=== PATIENT | male | born 1970 | race Caucasian/White ===

== ENCOUNTER → 2020-05-04 | Outpatient (CLI) | payer BC | LOC: RAD 08:00 | DX: K26.9 Duodenal ulcer, unspecified as acute or chronic, without hemorrhage or perforation (principal); K21.00 Gastro-esophageal reflux disease with esophagitis, without bleeding | CPT/HCPCS: 74240 ==

== ENCOUNTER → 2020-07-21 | Outpatient (CLI) | payer BC ==
[2020-07-22 09:15] LABS: CREATININE, URINE 54.9 mg/dL (Not Estab.)
== END ==
LOC: LAB 06:26
PROVIDERS: Internal Medicine Nephrology
DX: N18.9 Chronic kidney disease, unspecified (principal)
CPT/HCPCS: 36415; 80053; 81001; 82043; 82570; 84156

== ENCOUNTER → 2020-11-24 | Outpatient (CLI) | payer BC ==
[2020-11-25 06:10] LABS: CREATININE, URINE 131.2 mg/dL (Not Estab.)
== END ==
LOC: LAB 06:23
PROVIDERS: Internal Medicine Nephrology
DX: N18.9 Chronic kidney disease, unspecified (principal)
CPT/HCPCS: 36415; 80053; 81001; 82043; 82570; 84156

== ENCOUNTER → 2021-02-27 | Outpatient (CLI) | payer BC ==
[2021-02-27 07:04] LABS: URINE TOTAL PROTEIN 14 mg/dl
[2021-02-28 07:12] LABS: COMPLEMENT C3, SERUM 131 mg/dL (82-167); COMPLEMENT C4, SERUM 25 mg/dL (12-38)
[2021-02-28 16:14] LABS: A/G RATIO 1.2 (0.7-1.7); ALBUMIN 3.6 g/dL (2.9-4.4); ALPHA-1-GLOBULIN 0.2 g/dL (0.0-0.4); ALPHA-2-GLOBULIN 0.8 g/dL (0.4-1.0); ATYPICAL PANCA <1:20 titer (Neg:<1:20); CYTOPLASMIC (C-ANCA) <1:20 titer (Neg:<1:20); GAMMA GLOBULIN 1.1 g/dL (0.4-1.8); GLOBULIN, TOTAL 3.1 g/dL (2.2-3.9); IMMUNOGLOBULIN A, QN, SERUM 166 mg/dL (90-386); IMMUNOGLOBULIN G, QN, SERUM 1027 mg/dL (603-1613); IMMUNOGLOBULIN M, QN, SERUM 73 mg/dL (20-172); M-SPIKE Not Observed g/dL (Not Observed); PERINUCLEAR (P-ANCA) <1:20 titer (Neg:<1:20); PROTEIN, TOTAL, SERUM 6.7 g/dL (6.0-8.5)
[2021-03-01 14:14] LABS: M-SPIKE, % Not Observed % (Not Observed); PROTEIN,TOTAL,URINE 18.7 mg/dL (Not Estab.)
== END ==
LOC: LAB 05:53
PROVIDERS: Internal Medicine Nephrology
DX: N18.9 Chronic kidney disease, unspecified (principal)
CPT/HCPCS: 36415; 80053; 82043; 82570; 82784; 84155; 84156; 84165; 84166; 86038; 86160; 86256; 86334; 86335

== ENCOUNTER → 2021-06-01 | Outpatient (CLI) | payer BC ==
[2021-06-02 13:15] LABS: CREATININE, URINE 58.9 mg/dL (Not Estab.)
== END ==
LOC: LAB 06:13
PROVIDERS: Internal Medicine Nephrology
DX: N18.9 Chronic kidney disease, unspecified (principal)
CPT/HCPCS: 36415; 80053; 81001; 82043; 82570; 84156

== ENCOUNTER → 2021-06-22 | Outpatient (CLI) | payer BC | LOC: LAB 06:25 | PROVIDERS: Internal Medicine Nephrology | DX: N18.9 Chronic kidney disease, unspecified (principal) | CPT/HCPCS: 36415; 80053 ==

== ENCOUNTER → 2021-08-31 | Outpatient (CLI) | payer BC ==
[2021-09-01 10:14] LABS: CREATININE, URINE 67.7 mg/dL (Not Estab.)
== END ==
LOC: LAB 06:29
PROVIDERS: Internal Medicine Nephrology
DX: N18.9 Chronic kidney disease, unspecified (principal)
CPT/HCPCS: 36415; 80053; 81001; 82043; 82570; 84156

== ENCOUNTER → 2021-12-10 | Outpatient (CLI) | payer BC ==
[2021-12-12 12:13] LABS: CREATININE, URINE 97.6 mg/dL (Not Estab.)
== END ==
LOC: LAB 09:06
PROVIDERS: Internal Medicine Nephrology
DX: N18.9 Chronic kidney disease, unspecified (principal)
CPT/HCPCS: 36415; 80053; 81001; 82043; 82570; 84156